=== PATIENT | female | born 1995 | race Caucasian/White ===

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

== ENCOUNTER 2020-07-14 22:36 | Emergency (ER) | payer OTHER ==
[~2020-07-14 22:36] MED LIST changes: +NORCO 10-325 T1 EACH PO; +NORCO 5-325 TA1 EACH PO; +ROCEPHIN 2 GM AD2 GM IM; +VIBRAMYCIN100 MG PO
[2020-07-15] MEDS ORDERED: IBUPROFEN600 MG PO (02:32)
[2020-07-15] MEDS ORDERED: CEPHALEXIN500 M1 PO (02:32)
[2020-07-15] MEDS ORDERED: BACTRIM DS TAB1 EACH PO (02:32)
== END 2020-07-15 02:49 | disposition home or self-care (01) ==
LOC: ER1 22:36
PROVIDERS: Physician Assistant
DX: L02.511 Cutaneous abscess of right hand (principal); L03.114 Cellulitis of left upper limb; N39.0 Urinary tract infection, site not specified; F17.200 Nicotine dependence, unspecified, uncomplicated
CPT/HCPCS: 10060; 80307; 81001; 84703; 99283; J1885

== ENCOUNTER 2020-08-31 01:10 | Emergency (ER) | payer OTHER ==
[~2020-08-31 01:10] MED LIST changes: +BACTRIM DS TAB1 EACH PO; +CEPHALEXIN500 M1 PO; +IBUPROFEN600 MG PO
== END 2020-08-31 02:30 | disposition home or self-care (01) ==
LOC: ER1 01:10
DX: M25.472 Effusion, left ankle (principal); M25.471 Effusion, right ankle; I10 Essential (primary) hypertension; F17.210 Nicotine dependence, cigarettes, uncomplicated
CPT/HCPCS: 81001; 84703; 87086; 99283

== ENCOUNTER → 2021-05-15 | Outpatient (CLI) | payer OTHER ==
[2021-05-15 14:03] LABS: HEMOGLOBIN 12.6 gm/dl (12.3-15.3); RED BLOOD COUNT 4.22 M/UL (4.00-5.10); WHITE BLOOD COUNT 6.5 K/UL (4.5-11.0)
[2021-05-16 08:14] LABS: A/G RATIO 1.3 (1.2-2.2); ALKALINE PHOSPHATASE, S 116 IU/L (44-121); ALT (SGPT) 114 IU/L (0-32); AST (SGOT) 86 IU/L (0-40); BILIRUBIN, TOTAL 0.4 mg/dL (0.0-1.2); BUN 15 mg/dL (6-20); BUN/CREATININE RATIO 26 (9-23); CALCIUM, SERUM 9.6 mg/dL (8.7-10.2); CARBON DIOXIDE, TOTAL 20 mmol/L (20-29); CHLORIDE, SERUM 105 mmol/L (96-106); CREATININE, SERUM 0.57 mg/dL (0.57-1.00); EGFR IF AFRICN AM 151 (>59); EGFR IF NONAFRICN AM 131 (>59); GLOBULIN, TOTAL 3.3 g/dL (1.5-4.5); GLUCOSE, SERUM 66 mg/dL (65-99); POTASSIUM, SERUM 4.3 mmol/L (3.5-5.2); PROTEIN, TOTAL, SERUM 7.6 g/dL (6.0-8.5); SODIUM, SERUM 140 mmol/L (134-144)
[2021-05-16 09:14] LABS: LDL CHOL. (DIRECT) 77 mg/dL (0-99)
[2021-05-16 10:14] LABS: HBSAG SCREEN Negative (Negative); HEP B CORE AB, IGM Negative (Negative); HEP B CORE AB, TOT Negative (Negative)
[2021-05-16 11:14] LABS: HIV AB/P24 AG SCREEN Non Reactive (Non Reactive)
[2021-05-16 20:10] LABS: HCV LOG10 6.585 (.); HEPATITIS C QUANTITATION 3850000 IU/mL (.)
[2021-05-18 09:12] LABS: HEPATITIS C GENOTYPE 1a (.)
[2021-05-19 05:39] LABS: ALT (SGPT) P5P 123 IU/L (0-40); APOLIPOPROTEIN A-1 152 mg/dL (116-209); BILIRUBIN, TOTAL 0.4 mg/dL (0.0-1.2); FIBROSIS SCORE 0.24 (0.00-0.21); FIBROSIS STAGE F0-F1 (.); GGT 90 IU/L (0-60); HAPTOGLOBIN 67 mg/dL (33-278); NECROINFLAMMAT ACTIVITY GRADE A3-Severe activity (.); NECROINFLAMMAT ACTIVITY SCORE 0.63 (0.00-0.17)
== END ==
LOC: LAB 11:42
PROVIDERS: Family Medicine
DX: B18.2 Chronic viral hepatitis C (principal)
CPT/HCPCS: 36415; 80053; 81596; 82172; 82247; 82607; 82977; 83010; 84443; 84460; 85025; 86704; 86705; 86706; 86708; 87340; 87389; 87522; 87902

== ENCOUNTER 2021-06-22 00:50 | Emergency (ER) | payer OTHER ==
[2021-06-22 06:07] LABS: BUN/CREATININE RATIO 22 (0-10)
== END 2021-06-22 05:51 | disposition home or self-care (01) ==
LOC: ER1 00:50
PROVIDERS: Student in an Organized Health Care Education/Training Program
DX: L50.0 Allergic urticaria (principal); R00.0 Tachycardia, unspecified; F17.210 Nicotine dependence, cigarettes, uncomplicated
CPT/HCPCS: 71045; 80053; 82550; 82553; 83880; 84484; 84702; 93005; 96372; 99283; J0171; J1200; J2930; J7030

== ENCOUNTER 2021-09-22 15:59 | Emergency (ER) | payer OTHER | END 2021-09-22 23:00 | disposition home or self-care (01) | LOC: ER1 15:59 | DX: K04.7 Periapical abscess without sinus (principal); K02.9 Dental caries, unspecified | CPT/HCPCS: 70487; 96361; 96372; 96374; 99283; J0561; J1885; Q9967 ==